=== PATIENT | female | born 1985 | race African-American/Black ===

== ENCOUNTER 2021-08-10 18:51 | Emergency (ER) | payer SELFPAY ==
[~2021-08-10] VITALS: Ht 165.1 cm; Wt 64.0 kg
[2021-08-10 18:55] VITALS: BP 131/84
== END 2021-08-10 22:25 | disposition left against medical advice (07) ==
LOC: ER 18:51
DX: Z53.21 Procedure and treatment not carried out due to patient leaving prior to being seen by health care provider (principal)
CPT/HCPCS: 99283